=== PATIENT | male | born 1980 | race Caucasian/White ===

== ENCOUNTER 2018-05-12 22:33 | Emergency (ER) | payer BC ==
--- NOTE | 2018-05-12 23:32 | EDM.PDOC ---
ED HPI GENERAL MEDICAL PROBLEM - General Chief Complaint: General Stated Complaint: right 3rd finger wound Time Seen by Provider: 05/12/18 22:50 Source of Information: Reports: Patient History Limitations: Reports: No Limitations - History of Present Illness INITIAL COMMENTS - FREE TEXT/NARRATIVE: Patient is a 37-year-old gentleman who came in for evaluation of right ring finger which is red and tender now he has pain in his wrists and distal forearm he states that about 3 days ago he had a pimple in the finger which he squeezes and took out pus and a blackhead then put Neosporin and Band-Aid today the finger is swollen and tender Onset: Gradual Duration: Day(s): Location: Reports: Upper Extremity, Right Quality: Reports: Throbbing Severity: Moderate Improves with: Reports: None Worsens with: Reports: Movement Context: Reports: Other (Infection) Associated Symptoms: Reports: No Other Symptoms right 3rd finger Pain Score (Numeric/FACES): 8 - Related Data Allergies Allergy/AdvReac Type Severity Reaction Status Date / Time No Known Allergies Allergy Verified 05/12/18 22:38 Home Meds: Home Meds . [No Known Home Meds] 05/12/18 [History] Social & Family History - Tobacco Use Smoking Status *Q: Current Every Day Smoker Years of Tobacco use: 30 Packs/Tins Daily: 0.2 Used Tobacco, but Quit: No Second Hand Smoke Exposure: No - Caffeine Use Caffeine Use: Reports: Coffee - Alcohol Use Number of Drinks Per Day: 0 - Recreational Drug Use Recreational Drug Use: No ED ROS GENERAL - Review of Systems Review Of Systems: See Below Constitutional: Reports: No Symptoms HEENT: Reports: No Symptoms Respiratory: Reports: No Symptoms Cardiovascular: Reports: No Symptoms Endocrine: Reports: No Symptoms GI/Abdominal: Reports: No Symptoms : Reports: No Symptoms Musculoskeletal: Reports: No Symptoms Skin: Reports: No Symptoms Neurological: Reports: No Symptoms Psychiatric: Reports: No Symptoms Hematologic/Lymphatic: Reports: No Symptoms Immunologic: Reports: No Symptoms ED EXAM, GENERAL - Physical Exam Exam: See Below Exam Limited By: No Limitations General Appearance: Alert, WD/WN, No Apparent Distress Ears: Normal External Exam, Normal Canal, Hearing Grossly Normal, Normal TMs Ear Exam: Bilateral Ear: Auricle Normal, Canal Normal, TM normal Nose: Normal Inspection, Normal Mucosa, No Blood Throat/Mouth: Normal Inspection, Normal Lips, Normal Teeth, Normal Gums, Normal Oropharynx, Normal Voice, No Airway Compromise Head: Atraumatic, Normocephalic Neck: Normal Inspection, Supple, Non-Tender, Full Range of Motion Respiratory/Chest: No Respiratory Distress, Lungs Clear, Normal Breath Sounds, No Accessory Muscle Use, Chest Non-Tender Cardiovascular: Normal Peripheral Pulses, Regular Rate, Rhythm, No Edema, No Gallop, No JVD, No Murmur, No Rub GI/Abdominal: Normal Bowel Sounds, Soft, Non-Tender, No Organomegaly, No Distention, No Abnormal Bruit, No Mass (Male) Exam: Deferred Rectal (Males) Exam: Deferred Back Exam: Normal Inspection, Full Range of Motion, NT Extremities: Other (Right third finger swelling on the proximal phalanx midshaft right hand swelling and poikelothremali) Psychiatric: Normal Affect, Normal Mood Skin Exam: Warm, Dry, Intact, Normal Color, No Rash Lymphatic: No Adenopathy Course - Vital Signs Last Recorded V/S: Last Vital Signs Temp 98.1 F 05/12/18 22:38 Pulse 84 05/12/18 22:38 Resp 18 05/12/18 22:38 BP 130/77 05/12/18 22:38 Pulse Ox 100 05/12/18 22:38 - Orders/Labs/Meds Orders: Active Orders 24 hr Category Date Time Status CULTURE BLOOD [BC] Stat Lab 05/12/18 23:05 Received CULTURE BLOOD [BC] Stat Lab 05/12/18 23:10 Received Blood Culture x2 Reflex Set [OM.PC] Stat Oth 05/12/18 22:55 Ordered Labs: Laboratory Tests 05/12/18 Range/Units 23:10 WBC 16.6 H (4.0-10.2) K/uL RBC 4.29 L (4.33-5.41) M/uL Hgb 13.8 (13.1-16.8) g/dL Hct 40.2 (39.0-49.0) % MCV 93.7 (84.0-98.0) fL MCH 32.2 (28.2-33.3) pg MCHC 34.3 (31.7-36.0) g/dL RDW 13.7 (11.2-14.1) % Plt Count 242 (150-350) K/uL Neut % (Auto) 63.3 (45.0-80.0) % Lymph % (Auto) 25.3 (10.0-50.0) % [place] % (Auto) 9.1 (2.0-14.0) % Eos % (Auto) 1.9 (0.0-5.0) % Baso % (Auto) 0.4 (0.0-2.0) % Neut # (Auto) 10.48 H (1.40-7.00) K/uL Lymph # (Auto) 4.19 H (0.50-3.50) K/uL [place] # (Auto) 1.51 H (0.00-1.00) K/uL Eos # (Auto) 0.31 (0.00-0.50) K/uL Baso # (Auto) 0.06 (0.00-0.20) K/uL Departure - Departure Time of Disposition: 23:32 Disposition: Home, Self-Care 01 Condition: Fair Clinical Impression: Finger infection - Discharge Information *PRESCRIPTION DRUG MONITORING PROGRAM REVIEWED*: No *COPY OF PRESCRIPTION DRUG MONITORING REPORT IN PATIENT ALINA: No Instructions: Cellulitis, Adult Referrals: PCP,None [Primary Care Provider] - Care Plan Goals: Patient will be given a Rocephin shot followed by Cefzil 500 twice a day for 10 days - My Orders Last 24 Hours: My Active Orders 05/12/18 22:55 Blood Culture x2 Reflex Set [OM.PC] Stat 05/12/18 23:05 CULTURE BLOOD [BC] Stat 05/12/18 23:10 CULTURE BLOOD [BC] Stat - Assessment/Plan Last 24 Hours: My Active Orders 05/12/18 22:55 Blood Culture x2 Reflex Set [OM.PC] Stat 05/12/18 23:05 CULTURE BLOOD [BC] Stat 05/12/18 23:10 CULTURE BLOOD [BC] Stat
[2018-05-12] MEDS ORDERED: cefTRIAXone 1 GM Vial IM ONE (23:35)
[2018-05-12] MEDS ORDERED: Bacitracin/Neomycin/Polymyxin B Oint 0.9 GM U/D Packet TOP ONE (23:46)
== END 2018-05-13 00:30 | disposition home or self-care (01) ==
LOC: LL.ED 22:33
DX: L08.9 Local infection of the skin and subcutaneous tissue, unspecified (principal); F17.210 Nicotine dependence, cigarettes, uncomplicated
CPT/HCPCS: 36415; 85025; 87040; 87070; 87077; 87186; 96372; 99283; J0696

== ENCOUNTER 2018-10-24 16:42 | Emergency (ER) | payer BC ==
[2018-10-24 17:54] LABS: CHLORIDE,CL 102 mmol/L (98-107); SODIUM,NA 140 mmol/L (136-145)
--- NOTE | 2018-10-24 18:27 | EDM.PDOC ---
ED HPI GENERAL MEDICAL PROBLEM - General Chief Complaint: Syncope Stated Complaint: seizure like activity Time Seen by Provider: 10/24/18 16:50 Source of Information: Reports: Patient, Family History Limitations: Reports: No Limitations - History of Present Illness INITIAL COMMENTS - FREE TEXT/NARRATIVE: Patient comes to ER complaining that he has not been feeling well since he had a seizure-like episode around midnight last night. Was having a tattoo done at the time. Had 1/2 of an alcoholic beverage. Denies other drugs. states that the patient fell down to the ground, hit forehead in process. Then arched backwards/appeared to be stiffened, and she noted some twitching of hands/feet at same time. This lasted around 45 seconds per . Patient came too but was initially confused. Since then she feels his color has been off. Patient reports headache. Also says that he gets tunnel vision if he increases his level of activity. Is a bit sore "all over" Also has discomfort in abdomen that he describes as knot-like. No vomiting/bowel changes. No focal one sided weakness or numbness. No change in hearing. Denies neck pain. No cough/wheezing/chest pain/back pain/or shortness of breath. No urinary changes. In past he has had instances where he feels weak like he might pass out, but this goes away if he eats/rests. Denies other past medical issues. Smokes one PPD Middle Back Pain Score (Numeric/FACES): 5 - Related Data Allergies Allergy/AdvReac Type Severity Reaction Status Date / Time No Known Allergies Allergy Verified 10/24/18 16:48 Home Meds: Home Meds Ibuprofen 800 mg PO ASDIRECTED PRN 10/24/18 [History] Past Medical History - Past Health History Medical/Surgical History: Denies Medical/Surgical History - Infectious Disease History Infectious Disease History: Reports: Chicken Pox Social & Family History - Tobacco Use Smoking Status *Q: Current Every Day Smoker Years of Tobacco use: 28 Packs/Tins Daily: 1 - Caffeine Use Caffeine Use: Reports: Coffee, Soda, Tea - Alcohol Use Alcohol Use History: Yes - Recreational Drug Use Recreational Drug Use: Yes Recreational Drug Type: Reports: Cocaine, Ecstasy, Heroin, LSD (Acid), Marijuana /Hashish, Methamphetamine, PCP ([place]te [place]), Quaaludes, Valium, Vicodin, Xanax Recreational Drug Use Frequency: Not Used In Over 6 Months ED ROS GENERAL - Review of Systems Review Of Systems: ROS reveals no pertinent complaints other than HPI. ED EXAM, HEAD INJURY - Physical Exam Exam: See Below Exam Limited By: No Limitations General Appearance: Alert, Other (looks anxious, mildly stressed, but no acute distress) Head: Scalp Swelling (right forehead), Scalp Tenderness. No: Scalp Abrasions, Scalp Ecchymosis, Active Bleeding, Cline's Sign, Facial Abrasions, Facial Ecchymosis, Facial Lacerations, Sinus Tenderness, [place]accoon Eyes Nexus Criteria: No: Posterior, Midline Cervical Tenderness, Evidence of Intoxication, Altered Level of Consciousness, Focal Neurological Deficit, Painful Distraction Injuries Eyes: Bilateral Eye: EOMI, PERRL Ears: Normal External Exam, Normal Canal, Hearing Grossly Normal, Normal TMs Nose: Normal Inspection Throat/Mouth: Normal Lips, Normal Voice, No Airway Compromise Neck: Non-Tender, Full Range of Motion, Normal Alignment, Normal Inspection Respiratory: No Respiratory Distress, Lungs Clear, Normal Breath Sounds, No Accessory Muscle Use, Chest Non-Tender Cardiovascular: Normal Peripheral Pulses, Regular Rate, Rhythm, No Edema, No Murmur GI/Abdominal Exam: Normal Bowel Sounds, Soft, Non-Tender, No Distention (Male) Exam: Deferred Rectal (Males) Exam: Deferred Back Exam: No: CVA Tenderness (L), CVA Tenderness (R), Muscle Spasm, Paraspinal Tenderness, Vertebral Tenderness Extremities: Normal Range of Motion, No Pedal Edema, Normal Capillary Refill Neurologic: vp cardiovascular II-XII nml As Tested, No Motor/Sensory Deficits, Alert, Normal Mood/Affect, Oriented x 3 Skin: Normal Color, Warm/Dry - [place] Coma Score Best Eye Response ([place]): (4) Open Spontaneously Best Verbal Response ([place]): (5) Oriented Best Motor Response ([place]): (6) Obeys Commands EKG INTERPRETATION EKG Date: 10/24/18 Time: 17:44 Rhythm: NSR Rate (Beats/Min): 61 Imogene: Normal P-Wave: Present QRS: Normal ST-T: Normal QT: Normal Course - Vital Signs Last Recorded V/S: Last Vital Signs Temp 36.6 C 10/24/18 16:43 Pulse 66 10/24/18 16:43 Resp 20 10/24/18 16:43 BP 108/70 10/24/18 16:43 Pulse Ox 95 10/24/18 16:43 - Orders/Labs/Meds Orders: Active Orders 24 hr Category Date Time Status EKG Documentation Completion [RC] ASDIRECTED Care 10/24/18 17:27 Ordered Head wo Cont [CT] Stat Exams 10/24/18 17:19 Ordered DRUG SCREEN, URINE [URCHEM] Stat Lab 10/24/18 16:51 Ordered UA W/MICROSCOPIC [URIN] Stat Lab 10/24/18 16:51 Ordered Labs: Laboratory Tests 10/24/18 10/24/18 Range/Units 17:12 17:12 WBC 14.7 H (4.0-10.2) K/uL RBC 4.59 (4.33-5.41) M/uL Hgb 14.8 (13.1-16.8) g/dL Hct 42.7 (39.0-49.0) % MCV 93.0 (84.0-98.0) fL MCH 32.2 (28.2-33.3) pg MCHC 34.7 (31.7-36.0) g/dL RDW 14.6 H (11.2-14.1) % Plt Count 231 (150-350) K/uL Neut % (Auto) 68.8 (45.0-80.0) % Lymph % (Auto) 21.8 (10.0-50.0) % [place] % (Auto) 7.3 (2.0-14.0) % Eos % (Auto) 1.8 (0.0-5.0) % Baso % (Auto) 0.3 (0.0-2.0) % Neut # (Auto) 10.13 H (1.40-7.00) K/uL Lymph # (Auto) 3.21 (0.50-3.50) K/uL [place] # (Auto) 1.08 H (0.00-1.00) K/uL Eos # (Auto) 0.27 (0.00-0.50) K/uL Baso # (Auto) 0.05 (0.00-0.20) K/uL Sodium 140 (136-145) mmol/L Potassium 4.1 (3.5-5.1) mmol/L Chloride 102 (98-107) mmol/L Carbon Dioxide 25.5 (21.0-32.0) mmol/L BUN 14 (7-18) mg/dL Creatinine 1.11 (0.51-1.17) mg/dL Est Cr Clr Drug Dosing 97.10 mL/min Estimated GFR (MDRD) > 60 mL/min Glucose 90 (74-106) mg/dL Calcium 9.0 (8.5-10.1) mg/dL Magnesium 2.2 (1.8-2.4) mg/dL Total Bilirubin 0.3 (0.2-1.0) mg/dL AST 20 (15-37) U/L ALT 30 (12-78) U/L Alkaline Phosphatase 72 (46-116) IU/L Total Protein 7.5 (6.4-8.2) g/dL Albumin 3.8 (3.4-5.0) g/dL - Radiology Interpretation CT Results Date: 10/24/18 CT Results Time: 18:41 (No acute intracranial findings noted by Radiology) - Re-Assessments/Exams Free Text/Narrative Re-Assessment/Exam: 10/24/18 18:30 CT of head requested given history of possible seizure along with hitting head on floor. CBC showed elevated WBC. Chem unremarkable. UA pending, patient has not yet given sample. 10/24/18 19:16 Patient unable to void and provide UA sample. CT showed no acute changes Discussed above findings with patient, who had been outside smoking and observed ambulating easily to/from waiting room. Cannot exclude possible seizure event last night, however it could have also been related to syncope triggered by tattooing. Patient declined referral to [place] or [facility] for MRI. Suspect that his intermittent visual complaint and mild general soreness is related to last night's fall and probable concussion. He would like to return home and follow up at a primary provider's office instead. We did discuss that he should consider a referral to Neuro to more fully rule in/out the possibility of a seizure. He was given a work slip to be off of work tomorrow and Thursday. He is to follow up with a local primary provider either tomorrow afternoon or Thursday for recheck and further planning as needed. Precautions reviewed. To return to ER if any sudden worsening problems are noted. Patient agreeable with plan. Single Tramadol and Toradol PO given prior to discharge. Departure - Departure Time of Disposition: 18:55 Disposition: Home, Self-Care 01 Condition: Good Clinical Impression: Concussion Qualifiers: Encounter type: initial encounter Loss of consciousness presence/duration: with LOC of unspecified duration Qualified Code(s): S06.0X9A - Concussion with loss of consciousness of unspecified duration, initial encounter Episode of syncope Qualifiers: Syncope type: unspecified Qualified Code(s): R55 - Syncope and collapse - Discharge Information *PRESCRIPTION DRUG MONITORING PROGRAM REVIEWED*: Not Applicable *COPY OF PRESCRIPTION DRUG MONITORING REPORT IN PATIENT ALINA: Not Applicable Instructions: Syncope, [id number], Concussion, Adult, [id number] Forms: ED Department Discharge, ED Return to Work/School Form Additional Instructions: No work for the next two days. Make an appointment to be rechecked tomorrow or on Thursday. Discuss if you should get a referral to Neurology to be evaluated to see if what you experienced was a seizure or if it was likely caused by something else. Further restrictions for work can be determined at that time if needed. Take it easy for the next several days, no heavy lifting or exertion. Follow up for recheck in ER if you experience sudden worsening problems. - My Orders Last 24 Hours: My Active Orders 10/24/18 16:51 DRUG SCREEN, URINE [URCHEM] Stat UA W/MICROSCOPIC [URIN] Stat 10/24/18 17:19 Head wo Cont [CT] Stat 10/24/18 17:27 EKG Documentation Completion [RC] ASDIRECTED - Assessment/Plan Last 24 Hours: My Active Orders 10/24/18 16:51 DRUG SCREEN, URINE [URCHEM] Stat UA W/MICROSCOPIC [URIN] Stat 10/24/18 17:19 Head wo Cont [CT] Stat 10/24/18 17:27 EKG Documentation Completion [RC] ASDIRECTED
[2018-10-24] MEDS ORDERED: traMADol 50 MG Tab PO ONE (19:00)
[2018-10-24] MEDS ORDERED: Ketorolac 10 MG Tab PO ONE (19:00)
== END 2018-10-24 19:15 | disposition home or self-care (01) ==
LOC: LL.ED 16:42
DX: S06.0X9A Concussion with loss of consciousness of unspecified duration, initial encounter (principal); F17.210 Nicotine dependence, cigarettes, uncomplicated; W18.39XA Other fall on same level, initial encounter
CPT/HCPCS: 36415; 70450; 80053; 83735; 85025; 93005; 99284; A9270

== ENCOUNTER 2019-05-22 20:14 | Emergency (ER) | payer BC ==
[2019-05-22] MEDS ORDERED: Phenylephrine 0.5% Nasal Spray 15 ML Bot NASBOTH ONE (20:54)
--- NOTE | 2019-05-22 20:57 | EDM.PDOC ---
ED HPI GENERAL MEDICAL PROBLEM - General Chief Complaint: ENT Problem Stated Complaint: Object in nose Time Seen by Provider: 05/22/19 20:36 Source of Information: Reports: Patient History Limitations: Reports: No Limitations - History of Present Illness INITIAL COMMENTS - FREE TEXT/NARRATIVE: Patient sneezed while while eating and thinks that a [place] traveled up into the posterior part of his nasopharynx. Unable to dislodge it using gargling/saline nasal rinse. Painful. Has vomited a few times. Painful/hard to swallow. No bleeding noted. No other complaints. Treatments VAN DRIVER HELPER: Reports: Other (see below) Other Treatments VAN DRIVER HELPER: Flushing of nasal area Right Nose Pain Score (Numeric/FACES): 8 - Related Data Allergies Allergy/AdvReac Type Severity Reaction Status Date / Time No Known Allergies Allergy Verified 05/22/19 20:30 Home Meds: Home Meds Ibuprofen 800 mg PO ASDIRECTED PRN 10/24/18 [History] Acetaminophen [Pain Relief] 650 mg PO Q4HR PRN 05/22/19 [History] Past Medical History - Past Health History Medical/Surgical History: Denies Medical/Surgical History - Infectious Disease History Infectious Disease History: Reports: Chicken Pox Social & Family History - Caffeine Use Caffeine Use: Reports: Coffee, Soda, Tea ED ROS GENERAL - Review of Systems Review Of Systems: Comprehensive ROS is negative, except as noted in HPI. ED EXAM, GENERAL - Physical Exam Exam: See Below Exam Limited By: No Limitations General Appearance: WD/WN, Anxious, Moderate Distress Eye Exam: Bilateral Eye: EOMI, PERRL Ears: Hearing Grossly Normal Nose: No Blood, Other (No FB visualized). No: Nasal Swelling, Nasal Drainage Throat/Mouth: Normal Lips, Normal Voice, No Airway Compromise, Other (Uvula appears mildly swollen. No obvious FB visualized. ) Head: Atraumatic, Normocephalic. No: Facial Swelling Neck: Supple Respiratory/Chest: No Respiratory Distress, Lungs Clear, Normal Breath Sounds, No Accessory Muscle Use Cardiovascular: Regular Rate, Rhythm, No Murmur Extremities: Normal Capillary Refill Neurological: Alert, Oriented, Normal Cognition, Normal Gait Psychiatric: Anxious Skin Exam: Warm, Dry, Intact, Normal Color Course - Vital Signs Last Recorded V/S: Last Vital Signs Temp 36.8 C 05/22/19 20:20 Pulse 91 05/22/19 20:20 Resp 14 05/22/19 20:20 BP 115/68 05/22/19 20:20 Pulse Ox 100 05/22/19 20:20 - Orders/Labs/Meds Meds: Medications Discontinued Medications Generic Name Dose Route Start Last Admin Trade Name Lili PRN Reason Stop Dose Admin Ondansetron HCl 4 mg 05/22/19 21:04 05/22/19 21:07 Zofran Odt PO 05/22/19 21:05 4 mg ONETIME ONE Administration Phenylephrine HCl 1 ml 05/22/19 20:54 05/22/19 21:00 Michael-Synephrine 0.5% Regular Nasal [place] NASBOTH 05/22/19 20:55 2 spray ONETIME ONE Administration Tramadol HCl 50 mg 05/22/19 21:01 05/22/19 21:07 Ultram PO 05/22/19 21:02 50 mg ONETIME ONE Administration - Re-Assessments/Exams Free Text/Narrative Re-Assessment/Exam: Unable to visualize [place] on exam. Call placed to [facility] and patient discussed with ENT. recommended that patient present to the ER to be evaluated. Scope available for better evaluation and visualization of FB. He recommended against blind attempts to dislodge the [place]. will be able to see the patient in the ER and evaluate patient for removal of FB if needed. from ER officially accepted patient. Zofran ODT and single Ultram given to patient to help with pain/nausea. He plans to have his drive him to [facility] in [place]. Precautions reviewed prior to discharge. Departure - Departure Time of Disposition: 20:56 Disposition: Still A Patient 30 Condition: Good Clinical Impression: FB (nasal foreign body) Qualifiers: Encounter type: initial encounter Qualified Code(s): T17.1XXA - Foreign body in nostril, initial encounter - Discharge Information *PRESCRIPTION DRUG MONITORING PROGRAM REVIEWED*: Not Applicable *COPY OF PRESCRIPTION DRUG MONITORING REPORT IN PATIENT ALINA: Not Applicable Forms: ED Department Discharge Additional Instructions: drive directly to [facility] ER. THey know you are coming. They will call from ENT to see you Sepsis Event Note - Evaluation Sepsis Screening Result: No Definite Risk - Focused Exam Vital Signs: Vital Signs Temp Pulse Resp BP Pulse Ox 05/22/19 20:20 36.8 C 91 14 115/68 100 Date Exam was Performed: 05/22/19 Time Exam was Performed: 21:20
[2019-05-22] MEDS ORDERED: traMADol 50 MG Tab PO ONE (21:01)
[2019-05-22] MEDS ORDERED: Ondansetron 4 MG Tab.DIS PO ONE (21:04)
== END 2019-05-22 21:15 ==
LOC: LL.ED 20:14
DX: T17.1XXA Foreign body in nostril, initial encounter (principal)
CPT/HCPCS: 99284; A9270-GY

== ENCOUNTER 2020-04-14 11:40 | Emergency (ER) | payer BC ==
[2020-04-14] MEDS ORDERED: Bupivacaine 0.25% 10 ML SDV INJECT ONE (12:14)
[2020-04-14] MEDS ORDERED: traMADol 50 MG Tab PO ONE (12:18)
[2020-04-14] MEDS ORDERED: Bacitracin/Neomycin/Polymyxin B Oint 0.9 GM U/D Packet TOP ONE (13:13)
--- NOTE | 2020-04-14 13:35 | EDM.PDOC ---
ED HPI GENERAL MEDICAL PROBLEM - General Chief Complaint: Upper Extremity Injury/Pain Stated Complaint: right hand finger injury Time Seen by Provider: 04/14/20 12:00 Source of Information: Reports: Patient History Limitations: Reports: No Limitations - History of Present Illness INITIAL COMMENTS - FREE TEXT/NARRATIVE: Crush injury right hand. Accident happened while patient working on equipment at [employer]. Has lacerations. Able to move his fingers. Most pain is in 5th finger. No numbness. Denies other injuries. Unknown last tetanus update Right Hand Pain Score (Numeric/FACES): 3 - Related Data Allergies Allergy/AdvReac Type Severity Reaction Status Date / Time No Known Allergies Allergy Verified 04/14/20 11:53 Home Meds: Home Meds Ibuprofen 800 mg PO ASDIRECTED PRN 10/24/18 [History] Acetaminophen [Pain Relief] 650 mg PO Q4HR PRN 05/22/19 [History] Past Medical History - Past Health History Medical/Surgical History: Denies Medical/Surgical History - Infectious Disease History Infectious Disease History: Reports: Chicken Pox Social & Family History - Tobacco Use Tobacco Use Status *Q: Current Every Day Tobacco User Years of Tobacco use: 27 Packs/Tins Daily: 1 - Caffeine Use Caffeine Use: Reports: Coffee - Recreational Drug Use Recreational Drug Use: Yes Drug Use in Last 12 Months: No Review of Systems - Review of Systems Review Of Systems: Comprehensive ROS is negative, except as noted in HPI. ED EXAM, GENERAL - Physical Exam Exam: See Below Exam Limited By: No Limitations General Appearance: Alert, WD/WN, No Apparent Distress Eye Exam: Bilateral Eye: EOMI, PERRL Ears: Hearing Grossly Normal Throat/Mouth: Normal Voice, No Airway Compromise Head: Atraumatic, Normocephalic Neck: Supple Respiratory/Chest: No Respiratory Distress Extremities: Normal Range of Motion, Normal Capillary Refill, Other (lacerations noted dorsally right 2nd, 4th, 5th digits) Neurological: Alert, Oriented, Normal Cognition, Normal Gait, No Motor/Sensory Deficits Psychiatric: Normal Affect, Normal Mood Skin Exam: Warm, Wound/Incision ED TRAUMA EXTREMITY PROCEDURES - Laceration/Wound Repair Right Distal Digit - 2nd (Index) Lac/Wound Length In cm: 1 Appearance: Subcutaneous, Linear, Clean Distal NVT: Neuro & Vascular Intact, No Tendon Injury Anesthetic Type: Local Local Anesthesia - Lidocaine (Xylocaine): Other (marcaine .25% + Lidocaine 1%) Local Anesthetic Volume: 1cc Skin Prep: Providone-Iodine (Betadine) Exploration/Debridement/Repair: Wound Explored, In a Bloodless Field, Explored to Base, No Foreign Material Found Closed With: Sutures Suture Size: 4-0 # of Sutures: 3 Suture Type: Nylon, Interrupted Drain Placement: No Sterile Dressing Applied: Nurse Tetanus Status Addressed: Yes Complications: No Right Middle Dorsal Digit - 4th (Ring) Lac/Wound Length In cm: 1 Appearance: Subcutaneous, Linear, Clean Distal NVT: Neuro & Vascular Intact, No Tendon Injury Anesthetic Type: Local Local Anesthesia - Lidocaine (Xylocaine): 1% Plain Local Anesthesia - Bupivicaine (Marcaine): 0.25% Plain Local Anesthetic Volume: 1cc Skin Prep: Providone-Iodine (Betadine) Exploration/Debridement/Repair: Wound Explored, In a Bloodless Field, Explored to Base, No Foreign Material Found Closed With: Sutures Suture Size: 4-0 # of Sutures: 3 Suture Type: Nylon, Interrupted Drain Placement: No Sterile Dressing Applied: Nurse Tetanus Status Addressed: Yes Complications: No Right Dorsal Digit - 5th (Baby) Lac/Wound Length In cm: 3 Appearance: Subcutaneous, Irregular, Clean Distal NVT: Neuro & Vascular Intact, No Tendon Injury Anesthetic Type: Digital Local Anesthesia - Lidocaine (Xylocaine): 1% Plain Local Anesthesia - Bupivicaine (Marcaine): 0.25% Plain Local Anesthetic Volume: 5cc Skin Prep: Providone-Iodine (Betadine) Exploration/Debridement/Repair: Wound Explored, In a Bloodless Field, Explored to Base, No Foreign Material Found Closed With: Sutures Suture Size: 4-0 # of Sutures: 6 Suture Type: Nylon, Running Suture Size: 4-0 # of Sutures: 1 (used to ligate small bleeding vessel) Repaired With: Chromic Drain Placement: No Sterile Dressing Applied: Nurse Tetanus Status Addressed: Yes Complications: No Course - Vital Signs Last Recorded V/S: Last Vital Signs Temp 36.6 C 04/14/20 11:45 Pulse 67 04/14/20 11:45 Resp 20 04/14/20 11:45 BP 144/119 H 04/14/20 11:45 Pulse Ox 99 04/14/20 11:45 - Orders/Labs/Meds Orders: Active Orders 24 hr Category Date Time Status Vaccines to be Administered [RC] PER UNIT ROUTINE Care 04/14/20 13:37 Ordered Hand Comp Min 3V Rt [CR] Stat Exams 04/14/20 11:54 Taken Meds: Medications Discontinued Medications Generic Name Dose Route Start Last Admin Trade Name Lili PRN Reason Stop Dose Admin Bupivacaine HCl 10 ml 04/14/20 12:14 04/14/20 12:24 Sensorcaine-Mpf 0.25% INJECT 04/14/20 12:15 10 ml ONETIME ONE Administration Diphtheria/Tetanus/Acell Pertussis 0.5 ml 04/14/20 13:37 Boostrix IM 04/14/20 13:38 .ONCE ONE Lidocaine HCl 5 ml 04/14/20 12:14 04/14/20 12:24 Xylocaine-Mpf 1% INJECT 04/14/20 12:15 5 ml ONETIME ONE Administration Neomycin/Polymyxin/Bacitracin 1 each 04/14/20 13:13 04/14/20 13:18 Triple Antibiotic Oint TOP 04/14/20 13:14 1 each ONETIME ONE Administration Tramadol HCl 50 mg 04/14/20 12:18 04/14/20 12:24 Ultram PO 04/14/20 12:19 50 mg ONETIME ONE Administration - Re-Assessments/Exams Free Text/Narrative Re-Assessment/Exam: 04/14/20 13:59 Xray showed no obvious fractures. Lacerations repaired. Tetanus updated. No work today/tomorrow. Sutures out in approx 10 days. Precautions reviewed. To go bottle Keflex given to patient to take TID. Departure - Departure Time of Disposition: 13:32 Disposition: Home, Self-Care 01 Condition: Good Clinical Impression: Crushing injury of right hand Qualifiers: Encounter type: initial encounter Qualified Code(s): S67.21XA - Crushing injury of right hand, initial encounter Laceration of multiple sites of hand and fingers Qualifiers: Encounter type: initial encounter Laterality: right Qualified Code(s): S61.411A - Laceration without foreign body of right hand, initial encounter - Discharge Information *PRESCRIPTION DRUG MONITORING PROGRAM REVIEWED*: Not Applicable *COPY OF PRESCRIPTION DRUG MONITORING REPORT IN PATIENT ALINA: Not Applicable Instructions: Crush Injury of the Hand, [id number], Laceration Care, Adult, [id number] Forms: ED Department Discharge Additional Instructions: Take the Keflex one tab every 8 hours until pills are gone. May need to change/extend therapy if any signs of infection are noted. Keep sutures in place until ThursdayApr 23. Have them taken out at that time. Follow up if you have any acute changes problems. No work for 48 hours. Follow up for recheck Thursday at local clinic if you need further restrictions. Sepsis Event Note (ED) - Evaluation Sepsis Screening Result: No Definite Risk - Focused Exam Vital Signs: Vital Signs Temp Pulse Resp BP Pulse Ox 04/14/20 11:45 36.6 C 67 20 144/119 H 99 - My Orders Last 24 Hours: My Active Orders 04/14/20 11:54 Hand Comp Min 3V Rt [CR] Stat 04/14/20 13:37 Vaccines to be Administered [RC] PER UNIT ROUTINE - Assessment/Plan Last 24 Hours: My Active Orders 04/14/20 11:54 Hand Comp Min 3V Rt [CR] Stat 04/14/20 13:37 Vaccines to be Administered [RC] PER UNIT ROUTINE
[2020-04-14] MEDS ORDERED: Diphtheria,Pertussis(Acell),Tetanus Vaccine 0.5 ML Syringe IM ONE (13:37)
== END 2020-04-14 14:00 | disposition home or self-care (01) ==
LOC: LL.ED 11:40
DX: S67.21XA Crushing injury of right hand, initial encounter (principal); S61.210A Laceration without foreign body of right index finger without damage to nail, initial encounter; S61.214A Laceration without foreign body of right ring finger without damage to nail, initial encounter; S61.216A Laceration without foreign body of right little finger without damage to nail, initial encounter; Z23 Encounter for immunization; F17.210 Nicotine dependence, cigarettes, uncomplicated; W23.0XXA Caught, crushed, jammed, or pinched between moving objects, initial encounter
CPT/HCPCS: 12002; 73130-RT; 90471; 90715; 99283-25; A9270-GY; J2001; J3490

== ENCOUNTER 2021-08-14 10:01 | Emergency (ER) | payer BC, OTHER ==
[2021-08-14] MEDS ORDERED: Sodium Chloride 0.9% 10 ML Syringe FLUSH PRN (10:27)
[2021-08-14] MEDS ORDERED: Iopamidol 612 MG/ML 100 ML Bottle IVPUSH ONE (10:38)
[2021-08-14] MEDS ORDERED: Bupivacaine 0.5%/EPINEPHrine 1:200,000 30 ML SDV INJECT ONE (10:51)
[2021-08-14] MEDS ORDERED: Ampicillin/Sulbactam Na 3 GM in Sodium Chloride 0.9% 100 ML IV ONE (10:58)
[2021-08-14 11:11] LABS: ANION GAP 9.2 meq/L (7-15); CHLORIDE,CL 102 mmol/L (98-107); SODIUM,NA 138 mmol/L (136-145)
== END 2021-08-14 12:45 | disposition other institution (70) ==
LOC: LL.ED 10:01
DX: K03.81 Cracked tooth (principal); K04.7 Periapical abscess without sinus; K02.9 Dental caries, unspecified; Z72.0 Tobacco use
CPT/HCPCS: 36415; 64400; 70491; 80053; 85025; 86140; 87040; 96365; 99284-25; J0295; J3490; Q9967

== ENCOUNTER 2022-04-23 10:19 | Emergency (ER) | payer BC ==
[2022-04-23] MEDS ORDERED: Bupivacaine 0.5% 10 ML SDV INJECT ONE (11:16)
== END 2022-04-23 12:20 | disposition home or self-care (01) ==
LOC: LL.ED 10:19
DX: K04.7 Periapical abscess without sinus (principal); F17.210 Nicotine dependence, cigarettes, uncomplicated
CPT/HCPCS: 36415; 64400; 85025; 86140; 99283; J3490